=== PATIENT | female | born 1975 | race African-American/Black ===

== ENCOUNTER 2023-08-20 20:06 | Emergency (ER) | payer OTHER, SELFPAY ==
[2023-08-20 20:08] VITALS: BP 142/98; BMI 32.6
--- NOTE | 2023-08-20 21:29 | ED.GENMED ---
History of Present Illness
General
Chief Complaint: Headache
Source: patient
Time Seen by Provider: 08/20/23 21:02
Travel History
Have you had any contact with someone who has COVID-19?: No
Do you have any symptoms of coronavirus? Fever > 100 degrees, chills, cough, shortness of breath, sore throat, loss of taste or smell, muscle aches, or headache?: No
History of Present Illness
History of Present Illness:
47-year-old female presents to the emergency room complaining of headache, chills, sore throat, body aches. Symptoms have been present for the past 2 days. She is taking Aleve on Monday without improvement. She is taken 2 doses of Tylenol today
without improvement. No nausea or vomiting. No cough. Patient does get headaches from time to time but this is more significant than her typical headache. This headache began as a mild headache worse over time. No focal weakness numbness or
tingling.
Past History
Past History
ED Past Medical History: None
ED Past Surgical History: None
Social History
Tobacco: Non-smoker
Phy Exam
Physical Exam
Physical Exam:
General: Awake, Alert, Oriented X3. No acute distress.
Vitals: unremarkable
Head: Atraumatic
Eyes: Pupils equal, EOMI
Throat: Airway intact, no exudates
Neck: Trachea midline, no nuchal rigidity
Lungs: Clear and equal b/l
Heart: Regular rate, no murmurs
Abd: Soft, Nontender, No pulsatile mass
Neuro: Cranial nerves intact, muscle strength equal bilaterally
Skin: Warm, dry, no rash
Extremities: pulses equal b/l, no edema
Course
Orders/Labs/Results
Orders:
Orders
08/20/23 21:28
0.9% Sodium Chloride 500 ml [Nss] 500 ml IV BOLUS
Ketorolac [Toradol] 15 mg IV NOW STA
08/20/23 21:48
Basic Metabolic Panel Urgent
COVID-19 Antigen Urgent
Source: Nasal Swab
Complete Blood Count/With Diff Urgent
Influenza A+B Rapid Molecular Urgent
IRINEO Source: Nasal Swab
Specimen Description:
Abnormal Lab Results
08/20/23
21:48
MPV 11.9 H fL
(7.4-10.4)
Absolute Monos (auto) 0.9 H 10^3/uL
(0.1-0.6)
Monocytes % 11.4 H %
(1.7-9.3)
08/20/23 21:48
08/20/23 21:48
Vital Signs
Initial and Last Documented VS:
Initial Vital Signs
Temp Pulse Resp BP Pulse Ox
98.5 F 106 22 142/98 100
08/20/23 20:08 08/20/23 20:08 08/20/23 20:08 08/20/23 20:08 08/20/23 20:08
Last Documented Vital Signs
Temp Pulse Resp BP Pulse Ox
98.5 F 106 22 142/98 100
08/20/23 20:08 08/20/23 20:08 08/20/23 20:08 08/20/23 20:08 08/20/23 20:08
MDM/Problems Addressed
Differential Diagnosis Includes:
Viral syndrome, migraine, tension headache
MDM/Problems Addressed:
Patient has a nonfocal neurologic exam. COVID and flu test are negative. Labs are unremarkable. Patient had significant improvement after Toradol. She still has bit of a sore throat but there is no evidence of a bacterial infection. Stable for
discharge home and follow-up with her primary care provider.
*Pulse Oximetry
Patient hypoxic: no
*Critical Care Note
Total Time (30-74mins, 75-104mins- exclusive of procedures): Not Applicable
ED Attending Note
-
Portions of this chart may have been created with voice recognition software.� Occasional wrong word or��sound alike� substitutions may have occurred due to the inherent limitations of voice recognition software.
Discharge Plan
Departure
Patient Disposition: Home (Routine Discharge)
Date of Disposition: 08/20/23
Time of Disposition: 23:07
Patient with high blood pressure during this ER visit?: Yes
Condition: Good
Discharge Problem:
Headache, Acute viral syndrome
Instructions: Headache, Adult (DC), BLOOD PRESSURE
Prescriptions:
No Action
Vitamin Tablet
1 tab PO DAILY
fluticasone propionate [Flonase Allergy Relief] 50 mcg/actuation spray,suspension
1 spray intranasal BID 7 Days Qty: 16 0RF
Referrals:
Sanket Ferrera, DO [Family Provider] -
Interventions
Interventions:
*Risk Screen - Suicide Last Done: 08/20/23 20:08
*General Assessment Last Done: 08/20/23 23:26
*Neglect/Abuse Screening Last Done: 08/20/23 20:08
ED- Fall Risk Assessment Last Done: 08/20/23 20:08
*ED COVID-19 Vaccine History Last Done: 08/20/23 20:08
*Nursing Disposition Last Done: 08/20/23 23:26
ED- Neurological Assessment Last Done: 08/20/23 23:24
Discharge Date and Time
Discharge Date/Time: 08/20/23 23:26
Print Language: [email or web address]
[2023-08-20] MEDS: NSS 500 IV (21:37)
[2023-08-20] MEDS: TORADOL 15 MG IV (21:37)
[2023-08-20 21:59] LABS: % Basophils 0.4 % (0-2); % Eosinophils 0.6 % (0-6); % Immature Granulocytes 0.3 % (0-0.5); % Lymphocytes 24.3 % (20.5-51.1); % Monocytes 11.4 % (1.7-9.3); Absolute Eosinophils 0.1 10^3/uL (0-0.7); Absolute Lymphocytes 1.9 10^3/uL (1.2-3.4); Absolute Monocytes 0.9 10^3/uL (0.1-0.6); Absolute Neutrophils 4.9 10^3/uL (1.4-6.5); Hematocrit 39.4 % (37.0-47.0); Hemoglobin 13.1 g/dL (12.0-16.0); Mean Corp Hgb Conc. 33.2 g/dL (33.0-37.0); Mean Corpuscular Hgb 27.9 pg (27.0-31.0); Mean Corpuscular Volume 83.8 fL (81.0-99.0); Mean Platelet Volume 11.9 fL (7.4-10.4); Nucleated Red Blood Cells % 0 %; Platelet Count 205 10^3/uL (130-400); Red Cell Dist. Width 12.8 % (11.5-14.5); White Blood Cell Count 7.8 10^3/uL (4.8-10.8)
[2023-08-20 22:13] LABS: Blood Urea Nitrogen 14 mg/dl (7-17); Calcium 9.9 mg/dl (8.4-10.2); Carbon Dioxide 26 mmol/L (22-30); Chloride 106 mmol/L (98-107); Estimated Creatinine Clearance 94 ml/min; Glucose 91 mg/dl (70-99); Potassium 4.1 mmol/L (3.5-5.1); Sodium 137 mmol/L (135-145); eGFR > 60.00
[2023-08-20 22:15] LABS: COVID-19 Antigen Negative (Negative)
== END 2023-08-20 23:26 | disposition home or self-care (01) ==
LOC: EMR 20:06
PROVIDERS: EMERGENCY PHYSICIAN Emergency Medicine; FAMILY PHYSICIAN Family Medicine
DX: B34.9 Viral infection, unspecified (principal); R51.9 Headache, unspecified; R03.0 Elevated blood-pressure reading, without diagnosis of hypertension; Z11.52 Encounter for screening for COVID-19
CPT/HCPCS: 99284; 96374; 96361; 80048; 85025; 87502; 87811

== ENCOUNTER 2024-02-15 09:47 | Emergency (ER) | payer OTHER, SELFPAY ==
[2024-02-15 10:09] VITALS: BP 138/94
[2024-02-15 10:34] LABS: % Basophils 1.2 % (0-2); % Eosinophils 2.7 % (0-6); % Lymphocytes 43.6 % (20.5-51.1); % Monocytes 12.1 % (1.7-9.3); % Neutrophils 40.4 % (42.2-75.2); Absolute Basophils 0.1 10^3/uL (0-0.2); Absolute Eosinophils 0.1 10^3/uL (0-0.7); Absolute Lymphocytes 1.8 10^3/uL (1.2-3.4); Absolute Monocytes 0.5 10^3/uL (0.1-0.6); Absolute Neutrophils 1.7 10^3/uL (1.4-6.5); Hematocrit 41.9 % (37.0-47.0); Hemoglobin 13.6 g/dL (12.0-16.0); Mean Corp Hgb Conc. 32.5 g/dL (33.0-37.0); Mean Corpuscular Volume 83.3 fL (81.0-99.0); Mean Platelet Volume 11.3 fL (7.4-10.4); Nucleated Red Blood Cells % 0 %; Platelet Count 242 10^3/uL (130-400); Red Blood Cell Count 5.03 10^6/uL (4.20-5.40); Red Cell Dist. Width 13.1 % (11.5-14.5); White Blood Cell Count 4.1 10^3/uL (4.8-10.8)
[2024-02-15 10:44] LABS: Urine Albumin Negative (Neg - Trace); Urine Bilirubin Negative (Negative); Urine Character Slightly Cloudy (Clear); Urine Color Straw; Urine Glucose Negative (Negative); Urine Ketone Negative (Negative); Urine Leukocyte 2+ (Negative); Urine Nitrite Negative (Negative); Urine Occult Blood 4+ (Negative); Urine Urobilinogen Negative (Neg - 1+)
[2024-02-15 10:52] LABS: ALT (SGPT) 22 U/L (0-35); AST (SGOT) 27 U/L (14-36); Albumin 4.6 g/dl (3.5-5.0); Alkaline Phosphatase 60 U/L (38-126); Blood Urea Nitrogen 10 mg/dl (7-17); Calcium 9.8 mg/dl (8.4-10.2); Carbon Dioxide 25 mmol/L (22-30); Chloride 105 mmol/L (98-107); Glucose 98 mg/dl (70-99); Potassium 4.3 mmol/L (3.5-5.1); Sodium 141 mmol/L (135-145); Total Bilirubin 0.2 mg/dl (0.2-1.3); Total Protein 7.5 g/dl (6.3-8.2); eGFR > 60.00
[2024-02-15 11:02] LABS: Urine Bacteria Few (Negative); Urine Squamous Cell >30 /LPF (Few)
[2024-02-15 11:03] LABS: Urine Red Blood Cell 0-2 /HPF (0-2)
--- NOTE | 2024-02-15 11:07 | ED.GENMED ---
History of Present Illness
General
Chief Complaint: Dizziness
Source: patient
Exam Limitations: none
Time Seen by Provider: 02/15/24 10:45
Nursing documentation reviewed up to this point in time: agreed with
History of Present Illness
History of Present Illness:
pt is a 48 y/o F HIV pos on therapy
unkonwn last CD4 coung but VL is low
managed by ID in [place]
came from work for feeling lightheaded with stnading today
ehsin had URI sxs x 4-5 days, cough, chills, diarrhea; she took home covid which was neg
but the past 2 days she felt lightheaded with stanidng
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
no coughing blood, abd pain, cp, sob, neck stiffness, severe headache
Past History
Past History
ED Past Medical History: None
ED Past Surgical History: None
Social History
Tobacco: Non-smoker
Review of Systems
Review of Systems
Allergies reviewed?: Yes
All Other Systems: Not applicable
Phy Exam
Physical Exam
Physical Exam:
GENERAL: Alert , in no apparent distress
EYE: pupils equal and reactive
NECK: Supple
ENT: b/l TM s clear, ,mild nasal congestion pharynx erythematous but no tonsillar hypertrophy or exudates
CARDIAC: Regular rate and rhythm, no edema
LUNGS: Clear breath sounds bilaterally, occ cough, no acute respiratory distress, no wheezes/rales/rhonchi, occ cough
ABDOMEN: Soft, without focal tenderness, no r/g, no cvat, normal bowel sounds
NEUROLOGICAL: Alert and oriented, no focal neuro deficits
SKIN: Warm and dry, skin intact.
MUSCULOSKELETAL: No edema, well perfused.
PSYCH: Normal and appropriate interaction.
Course
Orders/Labs/Results
Orders:
Orders
02/15/24 10:12
Electrocardiogram (*1) Urgent
Reason for Study: Fatigue / Weakness
02/15/24 10:13
EKG- Treatment ONCE
02/15/24 10:23
CMP [Comprehensive Metabolic Panel] Urgent
Complete Blood Count/With Diff Urgent
02/15/24 10:30
Urinalysis Reflex To Culture Urgent
Date Specimen was Collected: 02/15/24
Time Specimen was Collected: 10:27
Urine Microscopic Reflex Cult Urgent
Urine Culture Urgent
IRINEO Source: U
Specimen Description:
Date Specimen was Collected: 02/15/24
Time Specimen was Collected: 10:27
02/15/24 10:45
Orthostatic VS- Treatment ONCE
02/15/24 11:27
COVID-19 Antigen Urgent
Source: Nasal Swab
Influenza A+B Rapid Molecular Urgent
IRINEO Source: Nasal Swab
Specimen Description:
02/15/24 12:26
CR Chest - 2 Views Urgent
Comment:
Reason For Exam: COUGH COLD, HIV
Abnormal Lab Results
02/15/24 02/15/24
10:23 10:30
WBC 4.1 L 10^3/uL
(4.8-10.8)
MCHC 32.5 L g/dL
(33.0-37.0)
MPV 11.3 H fL
(7.4-10.4)
Neutrophils % 40.4 L %
(42.2-75.2)
Monocytes % 12.1 H %
(1.7-9.3)
Ur Occult Blood Reflex 4+ A
(Negative)
Leukocyte Esterase Rfl 2+ A
(Negative)
Urine Bacteria (Reflex) Few A
(Negative)
02/15/24 10:23
02/15/24 10:23
Vital Signs
Initial and Last Documented VS:
Initial Vital Signs
Temp Pulse Resp BP Pulse Ox
99.4 F 79 16 138/94 100
02/15/24 10:09 02/15/24 10:09 02/15/24 10:09 02/15/24 10:09 02/15/24 10:09
Last Documented Vital Signs
Temp Pulse Resp BP Pulse Ox
99.4 F 70 16 135/81 99
02/15/24 10:09 02/15/24 13:20 02/15/24 13:20 02/15/24 13:20 02/15/24 13:20
MDM/Problems Addressed
Differential Diagnosis Includes:
uri, pneumonia, sinus infection, covid
MDM/Problems Addressed:
48 y/o F
hiv pos
on meds, doing well
no opportunistic infec
here with uri sxs for a few days
felt simialr to when she had covid
lightheaded with standing
cough
well appearing
nontoxic
lungs clear
no resp distress
sinus congestion
afebrile
cxr indep reviwed, no pna
immunocompetent (presumed by previous blood work within th epast few months)
likely viral
covid and flu neg
orthos neg
d/c home
fluids, supportive care
*Critical Care Note
Total Time (30-74mins, 75-104mins- exclusive of procedures): Not Applicable
ED Attending Note
-
Portions of this chart may have been created with voice recognition software.� Occasional wrong word or��sound alike� substitutions may have occurred due to the inherent limitations of voice recognition software.
Discharge Plan
Departure
Patient Disposition: Home (Routine Discharge)
Date of Disposition: 02/15/24
Time of Disposition: 13:16
Patient with high blood pressure during this ER visit?: No
Condition: Fair
Covid-19: Negative COVID-19
Discharge Problem:
Upper respiratory infection, viral
Instructions: Upper respiratory infection in adults - Discharge instructions
Prescriptions:
No Action
Vitamin Tablet
1 tab PO DAILY
fluticasone propionate [Flonase Allergy Relief] 50 mcg/actuation spray,suspension
1 spray intranasal BID 7 Days Qty: 16 0RF
Referrals:
Sanket Ferrera, DO [Family Provider] -
Stand Alone Forms: Return to Work
Activity Restrictions/Additional Instructions:
YOUR BLOOD WORK WAS REASSURING
YOUR COVID AND FLU WERE NEGATIVE
YOUR XRAY WAS NEGATIVE FOR PNEUMONIA
REST, DRINK FLUIDS, TAKE OVER THE COUNTER MEDICATIONS NEEDED FOR YOUR SYMPTOMS
RETURN FOR: WORSE COUGH, HIGH FEVER, DEHYDRATION, TROUBLE BREATHING OR ANY CONCERS.
Interventions
Interventions:
*Risk Screen - Suicide Last Done: 02/15/24 10:09
*General Assessment Last Done: 02/15/24 11:49
*Neglect/Abuse Screening Last Done: 02/15/24 10:09
*ED COVID-19 Vaccine History Last Done: 02/15/24 11:49
*Nursing Disposition Last Done: 02/15/24 13:33
ED- Neurological Assessment Last Done: 02/15/24 11:32
ED Swallowing Screen Last Done: 02/15/24 11:49
Discharge Date and Time
Discharge Date/Time: 02/15/24 13:34
Print Language: [id number]
[2024-02-15 11:48] VITALS: BP 135/89; BP 136/95; BP 139/95; PULSE 70; PULSE 75; PULSE 79
[2024-02-15 11:51] LABS: COVID-19 Antigen Negative (Negative)
[2024-02-15 13:20] VITALS: BP 135/81
== END 2024-02-15 13:34 | disposition home or self-care (01) ==
LOC: EMR 09:47
PROVIDERS: Physician Assistant; EMERGENCY PHYSICIAN Emergency Medicine; FAMILY PHYSICIAN Family Medicine
DX: J06.9 Acute upper respiratory infection, unspecified (principal); Z11.52 Encounter for screening for COVID-19
CPT/HCPCS: 99285; 71046; 80053; 81003; 81015; 85025; 87086; 87502; 87811; 93005

== ENCOUNTER → 2024-05-10 08:43 | Outpatient (REF) | payer OTHER, SELFPAY | LOC: RAD 08:43 | PROVIDERS: ATTENDING PHYSICIAN Internal Medicine Infectious Disease; FAMILY PHYSICIAN Family Medicine | DX: B18.1 Chronic viral hepatitis B without delta-agent (principal) | CPT/HCPCS: 76700 ==

== ENCOUNTER → 2024-10-31 14:00 | Outpatient (REF) | payer OTHER, SELFPAY | LOC: RAD 14:00 | PROVIDERS: ATTENDING PHYSICIAN Internal Medicine Infectious Disease; FAMILY PHYSICIAN Family Medicine | DX: B18.1 Chronic viral hepatitis B without delta-agent (principal) | CPT/HCPCS: 76700 ==

== ENCOUNTER → 2024-11-14 13:09 | Outpatient (REF) | payer BC, SELFPAY | LOC: WDC 13:09 | PROVIDERS: ATTENDING PHYSICIAN Internal Medicine Infectious Disease; FAMILY PHYSICIAN Family Medicine | DX: Z12.31 Encounter for screening mammogram for malignant neoplasm of breast (principal) | CPT/HCPCS: 77063; 77067 ==